=== PATIENT | male | born 1990 | race Caucasian/White ===

== ENCOUNTER 2024-02-17 18:05 | Emergency (ER) | payer SELFPAY ==
[2024-02-17 18:09] VITALS: BP 123/83
--- NOTE | 2024-02-17 18:56 | ED.MUSCINJ ---
HPI-Injury
General
Chief Complaint: Soft Tissue Injury
Source: patient
Time Seen by Provider: 02/17/24 18:50
History of Present Illness-Injury
Initial Injury comments:
33-year-old male presenting to the ER for evaluation after he injured his right thumb on a bolt while at work and putting a pipe together. Patient reports that this was in a muddied/dirty environment at work. Unsure of last tetanus.
[id number]. No other injuries were sustained.
Past History
Past History
ED Past Medical History: None
ED Past Surgical History: None
Social History
Tobacco: Non-smoker
Alcohol: Occasional
Drug: None
Personal: Single
Living: with family
Employment: Employed
Review of Systems
Review of Systems
All Other Systems: ROS reviewed and negative except as documented in HPI and ROS
Phy Exam
Physical Exam
Physical Exam:
GENERAL: Alert , in no apparent distress
EYE: conjunctiva clear
Head: Normocephalic atraumatic
NECK: Supple,
ENT: mmm.
LUNGS: no acute respiratory distress
NEUROLOGICAL: Alert and oriented
SKIN: Warm and dry, jagged superficial less than 1 cm laceration on the dorsal surface of the right thumb overlying the IP joint without any active bleeding. Patient allows for full range of motion of the right thumb and has intact and equal
sensation throughout
MUSCULOSKELETAL: well perfused.
PSYCH: Normal and appropriate interaction.
Scores
Heart Failure Risk
Heart Failure Risk Score: Not Applicable
Heart Score for Chest Pain Patients
STEMI patient?: Not applicable
Withdrawal Assessment of Alcohol
Withdrawal Assessment Completed?: Not applicable
Injury Course
Orders/Labs/Results
Orders:
Orders
02/17/24 18:13
Thumb/Finger 2 View Rt [CR Finger(s)/thumb Min 2 Vw Rt] Urgent
Comment:
Reason For Exam: pain injury laceration
02/17/24 18:56
Cephalexin Monohydrate [Keflex] 500 mg PO NOW STA
Tetanus/Diphth/Acelpertussis [Adacel] 0.5 ml IM .ONCE ONE
MDM/Problems Addressed
Differential Diagnosis Includes:
Laceration, no concern for tendon or nerve injury, fracture
MDM/Problems Addressed:
33-year-old male presenting to the ER for evaluation of right thumb laceration from a work injury. Laceration is quite superficial. X-ray was performed and negative for any fracture. Wound was irrigated copiously with normal saline and Betadine
solution. Given the injury occurred with dirty water and pipes will cover with antibiotic for infection prevention. Gelfoam was placed with a sterile dressing over top. Advised on wound care. Aware of return precautions to the ER. Stable for
discharge
*Radiology
Radiology exam reviewed: preliminary read by ED provider (No fracture)
*Pulse Oximetry
Patient hypoxic: no
*Critical Care Note
Total Time (30-74mins, 75-104mins- exclusive of procedures): Not Applicable
ED Attending Note
-
Portions of this chart may have been created with voice recognition software.� Occasional wrong word or��sound alike� substitutions may have occurred due to the inherent limitations of voice recognition software.
Discharge Plan
Departure
Patient Disposition: Home (Routine Discharge)
Date of Disposition: 02/17/24
Time of Disposition: 18:57
Patient with high blood pressure during this ER visit?: No
Discharge Problem:
Laceration of right thumb
Instructions: Wound Care (DC)
Prescriptions:
New
cephalexin 500 mg tablet
500 mg PO BID Qty: 9 0RF
Referrals:
UNKNOWN - PT DOES,NOT KNOW [Family Provider] -
Interventions
Interventions:
*Risk Screen - Suicide Last Done: 02/17/24 18:57
*General Assessment Last Done: 02/17/24 18:57
*Neglect/Abuse Screening Last Done: 02/17/24 18:57
*Nursing Disposition Last Done: 02/17/24 19:16
ED-Musculoskeletal Assessment Last Done: 02/17/24 18:32
ED-Skin Assessment Last Done: 02/17/24 18:32
Discharge Date and Time
Discharge Date/Time: 02/17/24 19:16
Print Language: NEPALI
[2024-02-17] MEDS: ADACEL 0.5 ML IM (19:03)
[2024-02-17] MEDS: KEFLEX 500 MG PO (19:03)
[2024-02-17 19:14] VITALS: BP 127/89
== END 2024-02-17 19:16 | disposition home or self-care (01) ==
LOC: EMR 18:05
PROVIDERS: EMERGENCY PHYSICIAN Emergency Medicine
DX: S61.011A Laceration without foreign body of right thumb without damage to nail, initial encounter (principal); W26.8XXA Contact with other sharp object(s), not elsewhere classified, initial encounter; Y99.0 Civilian activity done for income or pay; Z23 Encounter for immunization
CPT/HCPCS: 99283; 90471; 73140; 90715